=== PATIENT | female | born 1930 | race Caucasian/White ===

== ENCOUNTER → 2016-08-04 | Outpatient (CLI) | payer BC | LOC: COL.CARD 10:40 | DX: R00.2 Palpitations (principal) ==

== ENCOUNTER → 2017-07-27 | Outpatient (CLI) | payer BC | LOC: MC.RAD 13:13 | DX: Z12.31 Encounter for screening mammogram for malignant neoplasm of breast (principal); Z98.890 Other specified postprocedural states ==

== ENCOUNTER → 2018-09-02 | Outpatient (CLI) | payer BC | LOC: MC.RAD 08-19 13:00 | DX: Z12.31 Encounter for screening mammogram for malignant neoplasm of breast (principal); N64.89 Other specified disorders of breast ==

== ENCOUNTER → 2018-09-11 | Outpatient (CLI) | payer BC, MEDICARE | LOC: MC.RAD 11:00 | DX: N64.89 Other specified disorders of breast (principal) | CPT/HCPCS: G0279 ==